=== PATIENT | male | born 1990 | race Caucasian/White ===

== ENCOUNTER 2019-02-07 13:24 | Emergency (ER) | payer OTHER ==
[~2019-02-07] VITALS: Ht 175 cm; Wt 81.0 kg
[2019-02-07] MEDS ORDERED: IBUPROFEN 800 MG (MOTRIN) TAB PO STA (14:00)
--- NOTE | 2019-02-07 14:03 | ED Cough/URI ---
General Chief Complaint: Cough/Cold/Flu Symptoms Stated Complaint: COUGH / FEVER Nursing Triage Note: TO TRIAGE WITH COMPLAINTS OF COUGH, FEVER, AND WEAKNESS STARTING YESTERDAY. Sepsis Screen: No Definite Risk History of Present Illness Date Seen by Provider: Feb 07, 2019 Time Seen by Provider: 13:45 Initial Comments 28-year-old male presents with productive cough, fever and malaise started yesterday. He has not received a flu shot this year. He denies any nausea or vomiting. Timing/Duration: yesterday Severity/Quality: productive cough Prior Episodes/Possible Cause: no prior episodes Associated Symptoms: cough, fever/chills, muscle aches Allergies and Home Medications Allergies Coded Allergies: aspirin (Verified Adverse Reaction, Unknown, THINS HIS BLOOD , 02/07/19) Home Medications Oseltamivir Phosphate 75 Mg Cap, 75 MG PO BID Prescribed by: MARIYA LOPEZ on 02/07/19 1431 Patient Home Medication List Home Medication List Reviewed: Yes Review of Systems Review of Systems Constitutional: no symptoms reported, see HPI Respiratory: see HPI, cough, phlegm Musculoskeletal: see HPI, joint pain (generalized), muscle cramps All Other Systems Reviewed Negative Unless Noted: Yes Past Tvzfitq-Fialka-Aavtfl Hx Past Med/Social Hx: Reviewed Nursing Past Med/Soc Hx Patient Social History Alcohol Use: Rarely Uses Recreational Drug Use: No Smoking Status: Current Everyday Smoker Type Used: Cigarettes, Electronic/Vapor Recent Foreign Travel: No Contact w/Someone Who Travel: No Recent Infectious Disease Expo: No Recent Hopitalizations: No Seasonal Allergies Seasonal Allergies: No Past Medical History Surgeries: No Respiratory: Yes (CHILDHOOD ASTHMA) Neurological: No Gastrointestinal: No Musculoskeletal: No Endocrine: Yes (HYPOGLYCEMIA) HEENT: No Cancer: No Psychosocial: No Physical Exam Vital Signs - First Documented 02/07/19 13:30 Temp 37.3 Pulse 88 Resp 16 B/P (MAP) 135/89 (104) Pulse Ox 98 O2 Delivery Room Air Capillary Refill : Less Than 3 Seconds Height: '" Weight: lbs. oz. kg; 26.00 BMI Method: General Appearance: WD/WN Eyes: Bilateral Eye Normal Inspection, Bilateral Eye PERRL, Bilateral Eye EOMI HEENT: PERRL/EOMI, normal ENT inspection, TMs normal, pharynx normal, other (oral mucosa pink and moist.) Neck: non-tender, full range of motion, supple, normal inspection Respiratory: chest non-tender, lungs clear, normal breath sounds Cardiovascular: normal peripheral pulses, regular rate, rhythm Gastrointestinal: normal bowel sounds, non tender, soft Neurologic/Psychiatric: no motor/sensory deficits, alert, normal mood/affect, oriented x 3 Skin: normal color, warm/dry Lymphatic: no adenopathy Progress/Results/Core Measures Suspected Sepsis Recent Fever Within 48 Hours: Yes Infection Criteria Present: Suspected New Infection New/Unexplained Altered Menta: No Sepsis Screen: No Definite Risk SIRS Temperature: Pulse: 88 Respiratory Rate: 16 Blood Pressure 135 /89 Mean: 104 Results/Orders Micro Results Microbiology 02/07/19 Influenza Types A,B Antigen (JENNIFER) - Final, Complete My Orders Orders - MARIYA LOPEZ Influenza A And B Antigens (02/07/19 13:32) Ibuprofen Tablet (Motrin Tablet) (02/07/19 14:00) Vital Signs/I&O 02/07/19 02/07/19 13:30 14:36 Temp 37.3 37.3 Pulse 88 88 Resp 16 16 B/P (MAP) 135/89 (104) 135/89 (104) Pulse Ox 98 98 O2 Delivery Room Air Capillary Refill : Less Than 3 Seconds Blood Pressure Mean: 104 Progress Note : Time: 13:45 Progress Note Patient seen and evaluated. Will get influenza swab and reevaluate. Motrin 800 mg. 1430 influenza B-positive, results discussed with the patient. Discharge instructions and return precautions reviewed. Departure Impression Primary Impression: Influenza B Disposition: 01 HOME, SELF-CARE Condition: Improved Departure-Patient Inst. Decision time for Depature: 14:15 Referrals: NO,LOCAL PHYSICIAN (PCP/Family) Primary Care Physician Patient Instructions: Flu, Adult (DC) Add. Discharge Instructions: Increase rest and fluids. Alternate between Tylenol 650 mg and ibuprofen 600 mg every 4 hours for pain or fever. Stay home and limited social exposure for 7 days. Take Tamiflu as directed. May use [id number] Robitussin 1-2 tspn every 6 hours for cough and congestion. Follow-up with your primary care provider if symptoms are not improving or worsen. All discharge instructions reviewed with patient and/or family. Voiced understanding. Scripts Oseltamivir Phosphate (Tamiflu) 75 Mg Cap 75 MG PO BID, #10 CAP 0 Refills Prov: MARIYA LOPEZ 02/07/19 Work/School Note: Work Release Form Date Seen in the Emergency Department: Feb 07, 2019 Return to Work: Feb 14, 2019 Restrictions: No Restrictions MARIYA LOPEZ Feb 07, 2019 14:03
[2019-02-07] MEDS ORDERED: OSLT75C PO (14:31)
[2019-02-07 14:36] VITALS: BP 135/89
== END 2019-02-07 14:36 | disposition home or self-care (01) ==
LOC: EDUNIT# 13:24 → ER 13:26
DX: J10.1 Influenza due to other identified influenza virus with other respiratory manifestations (principal); J45.909 Unspecified asthma, uncomplicated; F17.210 Nicotine dependence, cigarettes, uncomplicated; F17.290 Nicotine dependence, other tobacco product, uncomplicated; Z88.6 Allergy status to analgesic agent
CPT/HCPCS: 87804

== ENCOUNTER 2019-07-06 11:54 | Emergency (ER) | payer OTHER ==
[~2019-07-06] VITALS: Ht 170.2 cm; Wt 77.2 kg
[~2019-07-06 11:54] MED LIST: OSLT75C PO
[2019-07-06] MEDS ORDERED: FLUORESCEIN (FLUOR-I-STRIPS) 1 MG STRP OU ONE (12:00)
[2019-07-06] MEDS ORDERED: TETRACAINE 0.5% OPHTH SOLN 4 ML BTL (SINGLE DOSE ONLY) OU ONE (12:00)
[2019-07-06] MEDS ORDERED: BSS 15 ML IR ONE (12:00)
[2019-07-06 12:07] VITALS: BP 136/88
[2019-07-06] MEDS ORDERED: ERYT1OIN6 OP (12:18)
[2019-07-06] MEDS ORDERED: ACHD5005 PO (12:18)
--- NOTE | 2019-07-06 12:25 | ED EENT ---
History of Present Illness General Chief Complaint: Eye Problems Stated Complaint: LEFT EYE PAIN Source: patient Exam Limitations: no limitations History of Present Illness Date Seen by Provider: Jul 06, 2019 Time Seen by Provider: 12:10 Initial Comments ER with left eye pain. He awakened this morning with this. He took his contacts out last night before going to bed and felt fine, upon awakening this pain. He has light sensitivity. He does not have an eye doctor currently, moved here fairly recently he states from [facility]. Severity: moderate Location: eye (L) Associated Symptoms: denies symptoms Allergies and Home Medications Allergies Coded Allergies: aspirin (Verified Adverse Reaction, Unknown, THINS HIS BLOOD , 02/07/19) Home Medications Erythromycin Base 1 Gm Oint...g., 0 OP TID 1/2 inch Prescribed by: NEETA BHATT on 07/06/19 1218 Hydrocodone Bit/Acetaminophen 1 Tab Tab, 1 EACH PO Q4-6HR PRN for PAIN-MODERATE Prescribed by: NEETA BHATT on 07/06/19 1218 Oseltamivir Phosphate 75 Mg Cap, 75 MG PO BID Prescribed by: MARIYA LOPEZ on 02/07/19 1431 Patient Home Medication List Home Medication List Reviewed: Yes Review of Systems Review of Systems Constitutional: see HPI Eyes: See HPI Ears: No Symptoms Reported Nose: no symptoms reported Mouth: no symptoms reported Throat: no symptoms reported Respiratory: no symptoms reported Cardiovascular: no symptoms reported Musculoskeletal: no symptoms reported Skin: no symptoms reported Neurological: No Symptoms Reported Past Nqhlusp-Pkhcob-Bwmznq Hx Patient Social History Type Used: Cigarettes, Electronic/Vapor Recent Foreign Travel: No Contact w/Someone Who Travel: No Recent Hopitalizations: No Seasonal Allergies Seasonal Allergies: No Past Medical History Surgeries: No Respiratory: Yes (CHILDHOOD ASTHMA) Neurological: No Gastrointestinal: No Musculoskeletal: No Endocrine: Yes (HYPOGLYCEMIA) HEENT: No Cancer: No Psychosocial: No Physical Exam Vital Signs Vital Signs - First Documented 07/06/19 12:07 Temp 37.3 Pulse 87 Resp 18 B/P (MAP) 136/88 (104) O2 Delivery Room Air Height, Weight, BMI Height: '" Weight: lbs. oz. kg; 26.00 BMI Method: General Appearance: WD/WN, no apparent distress Eyes: right eye normal inspection; left eye other (there is bulbar conjunctival inflammation on the left/scleral injection. There is an area of dye uptake in the center of the cornea about 2 mm circular appearance.); bilateral eye PERRL (photosensitivity on the left), bilateral eye EOMI Ears: bilateral ear auricle normal, bilateral ear canal normal, bilateral ear TM normal Neck: non-tender, full range of motion Neurologic/Psychiatric: alert, normal mood/affect, oriented x 3 Skin: normal color, warm/dry Progress/Results/Core Measures Results/Orders My Orders Orders - NEETA BHATT APRN Tetracaine 0.5% Ophth Clari Sdv (Tetracai (07/06/19 12:00) Fluorescein Strips ([id number]) (07/06/19 12:00) Balanced Salt Irrigation Soln (Bss Irrig (07/06/19 12:00) Medications Given in ED Current Medications Medications Dose Ordered Sig/Carole Route Start Time Stop Time Status Last Admin Dose Admin Balanced Salt Solution 15 ml ONCE ONCE IR 07/06/19 12:00 07/06/19 12:01 DC 07/06/19 12:05 15 ML Fluorescein Sodium 1 mg ONCE ONCE OU 07/06/19 12:00 07/06/19 12:01 DC 07/06/19 12:06 1 MG Tetracaine HCl 4 ml ONCE ONCE OU 07/06/19 12:00 07/06/19 12:01 DC 07/06/19 12:06 4 ML Vital Signs/I&O 07/06/19 12:07 Temp 37.3 Pulse 87 Resp 18 B/P (MAP) 136/88 (104) O2 Delivery Room Air Departure Communication (Admissions) Corneal ulceration is within the differential, since he is a contact lens wearer he does need follow-up with optometry. I made an appointment for him with his eye doctor, Dr. Brand at [facility] here in [place] for this at 8:30 AM. Impression Primary Impression: Corneal abrasion Disposition: HOME, SELF-CARE Condition: Stable Departure-Patient Inst. Decision time for Depature: 12:14 Referrals: MEME HARRELL OD, SHANE R OD NO,LOCAL PHYSICIAN (PCP) Primary Care Physician Patient Instructions: Corneal Abrasion (DC) Add. Discharge Instructions: 1. Antibiotic eye ointment to be placed about a half an inch just inside the lower eyelid 3 times a day for [address] Brand at [facility] will see this at 8:30 AM. Scripts Hydrocodone Bit/Acetaminophen (Hydrocodone/Acetaminophen 5/325mg Tablet) 1 Tab Tab 1 EACH PO Q4-6HR PRN for PAIN-MODERATE MDD 10 for 3 Days, #10 TAB Prov: NEETA BHATT APRN 07/06/19 Erythromycin Base (Erythromycin Opthalmic Ointment) 1 Gm Oint...g. 0 OP TID, #1 TUBE 1/2 inch Prov: NEETA BHATT APRN 07/06/19 Copy Copies To 1: MEME AHRRELL OD; RAFAEL SANCHEZ OD NEETA BHATT APRN Jul 06, 2019 12:16
== END 2019-07-06 12:26 | disposition home or self-care (01) ==
LOC: EDUNIT# 11:54 → ER 11:54
DX: S05.02XA Injury of conjunctiva and corneal abrasion without foreign body, left eye, initial encounter (principal); Z79.82 Long term (current) use of aspirin; X58.XXXA Exposure to other specified factors, initial encounter
CPT/HCPCS: 99282